=== PATIENT | male | born 1985 | race Caucasian/White ===

== ENCOUNTER 2024-09-19 04:32 | Emergency (ER) | payer BC, SELFPAY ==
[2024-09-19] MEDS ORDERED: Clindamycin 150 MG CAP ONE (05:01)
[2024-09-19] MEDS ORDERED: predniSONE 20 MG TAB ONE (05:02)
== END 2024-09-19 05:10 | disposition home or self-care (01) ==
LOC: NAV ERS 04:32
DX: T78.40XA Allergy, unspecified, initial encounter (principal); L03.114 Cellulitis of left upper limb; I10 Essential (primary) hypertension; F90.9 Attention-deficit hyperactivity disorder, unspecified type; F17.220 Nicotine dependence, chewing tobacco, uncomplicated
CPT/HCPCS: 99283; J7512

== ENCOUNTER 2025-04-24 21:14 | Emergency (ER) | payer BC | END 2025-04-24 21:40 | disposition left against medical advice (07) | LOC: NAV ERS 21:14 | DX: Z53.21 Procedure and treatment not carried out due to patient leaving prior to being seen by health care provider (principal) ==